=== PATIENT | male | born 1990 | race Caucasian/White ===

== ENCOUNTER 2024-02-26 14:50 | Emergency (ER) | payer SELFPAY ==
--- OUTSIDE RECORDS SUMMARY | 2024-02-26 14:52 | XMS REPORT | Continuity of Care Document ---
Author Name Unknown Address [address] [place] [address] [facility] thconnect Address 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 Attending Clinician [facility], No Primary or Family Admitting Clinic roxanna Unavailable Payers Payer Name Policy Type Policy Number Effective Date Expirati on Date Source Problems Condition Name Condition Details Condition Category Status Onset Date Resolution Date Last Treatment Date Treating Clinician Comments Source Contusion of right forearm, initial encounter Contusion of right forearm, initial encounter Problem HL7.CCDAR2 Active [facility] Mass of right forearm Mass of right forearm Problem HL7.CCDAR2 [facility] Allergies, Adverse Reactions, Alerts Allergy Name Allergy Type Status Severity Reaction(s) Onset Date Inactive Date Treating Clinician Comments Source PENICILL INS Drug Class Active High Rash 07-04 00:00: 00 [facility] Penicill ins Propensi ty to adverse reaction s to drug Active Rash 07-04 00:00: 00 [facility] PENICILL IN DA Active U 03-16 00:00: 00 [facility] Penicill ins drug allergy Active [facility] Social History Social Habit Start Date Stop Date Quantity Comments Source Sex Assigned At 1990 00:00:00 1990 00:00:00 [facility] Smoking Status Start Date Stop Date Source Tobacco smoking consumption unknown [facility] Medications Ordered Medication Name Filled Medication Name Start Date Stop Date Current Medication? Ordering Clinician Indication Dosage Frequency Signature (SIG) Comments Components Source Meloxicam 7.5 MG Oral Tablet Meloxicam 7.5 MG Oral Tablet 05-11 00:00: 00 Yes CHARITO LOERA M.D. TAKE 1 TABLET DAILY WITH FOOD. Days: 30; Qty: 30 X Tablet; Refill: 3 [facility] Methocarbam ol 500 MG Oral Tablet Methocarbam ol 500 MG Oral Tablet 05-11 00:00: 00 Yes CHARITO LOERA M.D. 1 QD TAKE 1 TABLET DAILY PRN pain [facility] No known medications 07-17 11:02: 41 No No known medication s [facility] Procedures Procedure Date / Time Performed Performing Clinicia n Source MR Forearm wo contrast [id number] 2018-06-08 00:00:00 [facility] [U] XRAY WRIST MIN 3 VWS RIGHT [id number] 2018-05-11 00:00:00 [facility] History of Hand surgery [facility] of [facility]ons[facility]lectomy [facility] Encounters Start Date/Time End Date/Time Encounter Type Admission Type Attending Clinicians Care Facility Care Department Encounter ID Source 2023-11-09 14:50:51 2023-11-09 14:50:51 Outpatient [facility] [id number] Anatoliy Sutherland 2023-11-02 09:43:27 2023-11-02 09:43:27 Outpatient [facility] [id number] Anatoliy Sutherland 2022-08-25 22:14:00 2022-08-25 22:24:00 Emergency Dean Abarca [facility] [id number] [facility] 2022-08-25 22:14:00 2022-08-25 22:24:00 Emergency X DEAN ABARCA [facility] ERT [id number] [facility] 2022-05-24 14:26:00 2022-05-24 16:04:00 Emergency EM Dark, Tori [facility] [id number] [facility] 2022-05-24 14:26:00 2022-05-24 16:04:00 Emergency EM Dark, Tori HCACL TOMMY [id number] 74 [facility] 2018-06-08 08:45:00 2018-06-08 08:45:00 Appointmen t; CHARITO BYRD M.D. LI-YUNG HING, ANDREW, M.D. [facility] [place] [id number] [place] [facility] 2018-05-11 08:45:00 2018-05-11 08:45:00 Appointmen t; CHARITO BYRD M.D. LI-YUNG HING, ANDREW, M.D. [facility] [place] [id number] [place] [facility] Results Test Description Test Time Test Comments Results Resul t Comments Source - XR FOOT 3 + V LT 2022-05-24 00:00:00 [facility] CRISTELAName: RAFAEL LYNCH : 1990 Sex: M FAX: Bryan Alarcon NP [phone] [place]: St: REG Name: RAFAEL LYNCH [facility] : 1990 Age/S: 31/M [address] [place] [address] Unit #: [id number] Loc: [place] [address] Phys: Bryan Bejarano NP Acct: [id number] Dis Date: Status: REG ER PHONE #: [phone] Exam Date: 05/24/2022 1459 FAX #: [phone] Reason: LEFT FOOT PAIN EXAMS: CPT CODE: [id number] XR FOOT 3 + V LT [id number] PROCEDURE INFORMATION: Exam: XR Left Foot Exam date and time: 05/24/2022 2:51 PM Age: 31 years old Clinical indication: Pain; Foot; Left; Additional info: Left foot pain TECHNIQUE: Imaging protocol: Radiologic exam of the Left foot. Views: 3 or more views. AP Oblique Lateral COMPARISON: No relevant prior studies available. FINDINGS: Bones/joints: There is normal alignment without fractures or dislocations. The joints appear unremarkable. Soft tissues: There are no radiopaque foreign bodies. There is no soft tissue gas or osseous erosive changes noted. Notes: If there is further concern, recommend follow-up radiographs or MRI for complete assessment. IMPRESSION: No fractures or dislocation at 1524 Reported and signed by: Kody Mohr M.D. CC: Bryan Bejarano NP Technologist: RT Iris(Rudi) Trnscrd Date/Time/By: 05/24/2022 (1524) : By: [email or web address] Orig Print D/T: S: 05/24/2022 (2188) PAGE 1 Signed Report Notes Date/Time Note Provider Source 2022-05-24 14:38:00 [id number]:38:00 [facility] ([facility])EMERGENCY PROVIDER REPORTREPORT#:[id number] REPORT STATUS: SignedDATE:05/24/22 TIME: 1438 PATIENT: RAFAEL LYNCH UNIT #: [id number]#: [id number] ROOM/BED:AGE: 31 SEX: M PCP PHYS: No Primary or Family PhysicianSERVICE AUTHOR: Bryan Bejarano COREMAKER EXPERIMENTAL * ALL edits or amendments must be made on the electronic/computer document * Bryan Bejarano 05/24/22 1438:HPI-Extremity Prob Lower Free Text HPI NotesFree Text HPI NotesPatient 31-year-old male with no significant medical history presents with complaint of left foot pain status post injury on a water slide yesterday. Reports that left foot became entrapped under body while entering water slide [facility].Allergic to penicillin, no home meds, PSH includes repairs of both hands and jaw. Current everyday smoker, drinks occasionally, denies recreational drug use.Patient has no PCP GeneralConfirmed Patient YesInitial Greet Date/Time 05/24/22 1431 PresentationChief Complaint Foot problem L Risk-Extremity Prob Lower Risk StratificationWell's Criteria for DVT Well's Criteria for DVT Response Value Active Cancer? No 0 Immob Lower Extremity? No 0 Bed >3 Days/Surg Last 4 Weeks? No 0 Local Tend Deep Venous Sys? No 0 Entire Leg Swollen? No 0 Calf Swelling >3cm? No 0 Pit Edema in Symptomatic Leg? No 0 Collat Superficial Veins? No 0 Previous Documented DVT? No 0 Total 0 Well's DVT Score Unlikely, per Pavel DVT Review of Systems ROS StatementsAll systems rev neg except as marked. Past Medical History - AdultStated Complaint LFT FOOT INJURYAllergiesUncoded Allergies:PENICILLIN (05/16/09) Review of Nursing Notes Rev avail, and agreeSmoking status for patients 13 years old or older: Current every day smoker Physical Exam Vital SignsVital SignsFirst Documented: Result Date Time Pulse Ox 99 07/ 1430 B/P 155/97 07/02 1430 B/P Mean 116 07/02 1430 O2 Delivery Room air 07/ 1430 Temp 36.2 07/02 1430 Pulse 90 07/02 1430 Resp 16 / 1430 Last Documented: Result Date Time Pulse Ox 99 07/ 1430 B/P 155/97 07/02 1430 B/P Mean 116 07/02 1430 O2 Delivery Room air 07/ 1430 Temp 36.2 07/02 1430 Pulse 90 07/ 1430 Resp 16 05/24 1430 Review of Vital Signs Reviewed Focused PEGeneral/Const General/Const Awake, Alert, No acute distress, Not toxic appearingResp/Chest Respiratory/Chest Breath sounds NL, Breath sounds = bilat, No respiratory distressCardiovascular Cardiovascular Regular rhythm, Heart sounds NL, No murmursMS Lower Extrem Lower Ext/Pelvis/MS Full range of motion, No swelling, Non-tender, No erythemaMS Ankle/Foot Text/Dict NoteRight LE is unremarkableThere is mild swelling and TTP without erythema to the left dorsal lateral midfoot. Patient is able to ambulate with only minimal antalgic gait. Declinespain medications at this time.Skin Skin Color NL, No rash, Warm, Dry, IntactNeurologic Neurologic Oriented X3, Speech NL, Gait NL Interpretation Diagnostics Lab Results InterpretationResultsRecent Impressions:RADIOLOGY - XR FOOT 3 + V LT 05/24 1459 Report Impression - Status: SIGNED Entered: 05/24/2022 1524 IMPRESSION: No fractures or dislocation Impression By: Judi Mohr M.D. Point of Care TestingPulse Oximetry Pulse Ox % 99 On: Room air Interpretation Interpreted by me, Pulse oximetry normal Time 1430 RadiographyX-Ray Interpretation Text/Dict NoteRADIOLOGY - XR FOOT 3 + V LT 05/24 1459 Report Impression - Status: SIGNED Entered: 05/24/2022 1524 IMPRESSION: No fractures or dislocation Impression By: Judi Mohr M.D. Re-Evaluation MDM Free Text MDM NotesFree Text MDM NotesElastic bandage was placed to the left foot to provide compression. Patient tolerated procedure well. Re-Evaluation/ProgressRe-Evaluation/Progress Text/Dict NotePatient is resting comfortably waiting room with no acute distress reported or noted. Is frequently seen walking outside to smoke. Shared results with patient, including no fracture or dislocation. Patient continues to decline pain medications at this time. Plan to DC home with follow-up for orthopedics as needed. Instructed on home care including rest ice compress elevate. Patient verbalized understanding agreeable plan Time of Re-Eval 1543 Re-Eval Status Improved ED CourseMedication(s) OrderedMedication(s) Ordered:Central Nervous System Agents Sig/Jessenia Start time Last Medication Dose Route Stop Time Status Admin Ibuprofen 800 MG X1ED STA 05/24 1515 DC PO 05/24 1516 Patient Discharge Departure Vital Signs/ConditionVital SignsFirst Documented: Result Date Time Pulse Ox 99 07/ 1430 B/P 155/97 07/02 1430 B/P Mean 116 07/02 1430 O2 Delivery Room air 07/ 1430 Temp 36.2 07/02 1430 Pulse 90 07/02 1430 Resp 16 07/02 1430 Last Documented: Result Date Time Pulse Ox 99 07/02 1430 B/P 155/97 07/02 1430 B/P Mean 116 07/02 1430 O2 Delivery Room air 07/02 1430 Temp 36.2 07/02 1430 Pulse 90 07/02 1430 Resp 16 07/02 1430 All vital signs available at the time of this entry have been reviewed. Condition Stable Clinical ImpressionClinical ImpressionPrimary Impression: Sprain of foot, left Disposition DecisionDischarge )( Discharged to Home Yes )( Time 1552 )( Date 05/24/22 Discharge/Care PlanCounseled Regarding Diagnosis, Imaging studies, Need for follow-up, When to return to ED(Auto) PrescriptionsCurrent Visit ScriptsIBUPROFEN (MOTRIN) 800 MG PO TID PRN PRN PAIN IBUPROFEN (MOTRIN) 800 MG PO TID PRN PRN PAIN #30 TABS Patient Instructions ED Foot Sprain, ED RICEAdditional InstructionsYou were seen in the ER for your left foot pain. While you were here, we completed x-ray studies and treated your pain. Your results showed no evidence of a fracture. Take the prescribed and/or OTC medications as directed, as discussed, paying especially close attention to dosing based on age and weight. Follow-up with your PCP, and/or an appropriate specialist as discussed for continuity of care. Return to the ER for any alarming symptoms. Discharge NoteI have spoken with the patient and/or caregivers. I have explained the patient'scondition, diagnoses and treatment plan based on the information available to meat this time. I have answered the patient's and/or caregiver's questions and addressed any concerns. The patient and/or caregivers have as good an understanding of the patient's diagnosis, condition and treatment plan as can beexpected at this point. The vital signs have been stable. The patient's condition is stable and appropriate for discharge from the emergency department. The patient will pursue further outpatient evaluation with the primary care physician or other designated or consulting physician as outlined in the discharge instructions. The patient and/or caregivers are agreeable to this planof care and follow-up instructions have been explained in detail. The patient and/or caregivers have received these instructions in written format and have expressed an understanding of the discharge instructions. The patient and/or caregivers are aware that any significant change in condition or worsening of symptoms should prompt an immediate return to this or the closest emergency department or a call to 911. Extremity Inj Discharge NoteThe patient is discharged home with supportive care, a plan for pain control, and follow-up instructions that detail what to expect over the next 48 hours andwhat symptoms should prompt immediate return to the ED, including the symptoms of compartment syndrome. Follow-up instructions have been explained in detail tothe patient, and the instructions have been provided in written format. The patient is comfortable with the plan of care and has expressed an understanding of the discharge instructions. The patient is aware that any significant change in condition or worsening of symptoms should prompt an immediate call to the primary or designated physician. If that is not successful the patient should call or return to this or the closest emergency department or call 911. Quality MeasuresBP F/U for HTN Referred for BP f/u < 4wk, F/u with PCP/other doc Melanie Hebert 06/07/22 0047:Patient Discharge Departure Discharge/Care PlanReferralsProvider Referral: Anson Smalls Jr, MD Address: [address] [place] [address]. [id number] [address] Supervising Physician Note MidLv Saw Pt AloneI have reviewed the PA/COREMAKER EXPERIMENTAL's note and plan of care. I was available for consultation as needed at all times during the patient's visit in the emergency department. I agree with the clinical impression, plan and disposition. at 1735 at 0047RPT #:[id number] OF REPORTEDPeacehealth [facility] department [id number] ilable for patient [id number] HCACL
--- NOTE | 2024-02-26 15:17 | ER ---
Nurse's Notes [facility] Name: Tawnya Lynch Age: 33 yrs Sex: Male : 1990 Arrival Date: 02/26/2024 Time: 14:50 Bed IW3 Private MD: Diagnosis: Abdominal pain, unspecified;Diarrhea, unspecified;Nausea Presentation: 02/25 15:05 Chief complaint: Patient states: Would like a work note because he called into work for ll1 abdominal pain and fever (2 days of abdominal pain). Coronavirus screen: Client denies travel out of the [place] in the last 14 days. At this time, the client does not indicate any symptoms associated with coronavirus-19. Ebola Screen: Patient denies travel to an Ebola-affected area in the 21 days before illness onset. Initial Sepsis Screen: Does the patient meet any 2 criteria? No. Patient's initial sepsis screen is negative. Does the patient have a suspected source of infection? No. Patient's initial sepsis screen is negative. Risk Assessment: Do you want to hurt yourself or someone else? Patient reports no desire to harm self or others. Onset of symptoms was February 24, 2024. 15:05 Method Of Arrival: Ambulatory ll1 15:05 Acuity: BRIA 5 ll1 Triage Assessment: 15:05 General: Appears in no apparent distress. Behavior is calm, cooperative, appropriate ll1 for age, Reports needing a work release. Pain: Denies pain. GI: Reports had abdominal pain and fever last night. Feels better now. Needs a work excuse. Historical: - Allergies: 15:06 PENICILLINS; ll1 - PMHx: 15:06 None; ll1 - PSHx: 15:06 jaw SX; ll1 - Immunization history:: Adult Immunizations up to date. - Infectious Disease History:: Denies. - Social history:: Smoking status: Patient reports the use of cigarette tobacco products, smokes one-half pack cigarettes per day. Screenin:20 [facility] ED Fall Risk Assessment (Adult) History of falling in the last 3 months, ll1 including since admission No falls in past 3 months (0 pts) Confusion or Disorientation No (0 pts) Intoxicated or Sedated No (0 pts) Impaired Gait No (0 pts) Mobility Assist Device Used No (0 pt) Altered Elimination No (0 pt) Score/Fall Risk Level 0 - 2 = Low Risk Oriented to surroundings, Hourly rounding (assess needs \T\ fall precautionary measures) done. Abuse screen: Denies threats or abuse. Nutritional screening: No deficits noted. Tuberculosis screening: No symptoms or risk factors identified. Assessment: 15:20 Reassessment: Patient appears in no apparent distress at this time. No changes from ll1 previously documented assessment. Patient and/or family updated on plan of care and expected duration. Pain level reassessed. 15:20 GI: Bowel sounds present X 4 quads. Abd is soft and non tender X 4 quads. ll1 Vital Signs: 15:05 BP 146 / 109; Pulse 88; Resp 16; Temp 98; Pulse Ox 100% ; Pain 0/10; ll1 15:05 Pain Scale: Adult ll1 ED Course: 14:53 Patient arrived in ED. rg4 14:54 Sebastian Kimbrough PA is PHCP. cp 14:54 Skyler Muniz MD is Attending Physician. cp 15:00 Arm band placed on. ll1 15:06 Triage completed. ll1 15:20 Patient has correct armband on for positive identification. Provided Education on: ll1 Return to ED for worsening symptoms. Verbalized understanding. . 15:20 No provider procedures requiring assistance completed. Patient did not have IV access ll1 during this emergency room visit. Administered Medications: No medications were administered Medication: 16:12 VIS not applicable for this client. ll1 Outcome: 15:17 Discharge ordered by . cp 15:20 Patient left the ED. ll1 15:20 Discharged to home ambulatory, ll1 15:20 Condition: stable 15:20 Discharge instructions given to patient, Instructed on discharge instructions, follow up and referral plans. Demonstrated understanding of instructions, follow-up care, Signatures: Sebastian Kimbrough PA PA cp Garcia, Rubi rg4 Urbano Gutierrez RN RN ll1 Corrections: (The following items were deleted from the chart) 15:07 15:06 PSHx: None; ll1 ll1
--- NOTE | 2024-02-26 15:17 | EDPHYS ---
Physician Documentation [facility] Name: Tawnya Lynch Age: 33 yrs Sex: Male : 1990 Arrival Date: 02/26/2024 Time: 14:50 Bed IW3 Private MD: ED Physician Skyler Muniz HPI: 02/25 15:07 This 33 yrs old Male presents to ER via Ambulatory with complaints of Abdominal Pain, cp Fever. 15:07 The patient presents with abdominal pain nausea, vomiting and diarrhea. Onset: The cp symptoms/episode began/occurred 3 day(s) ago. The symptoms do not radiate. Associated signs and symptoms: Pertinent positives: fever, Pertinent negatives: blood in stools, constipation, dysuria, vomiting blood. The symptoms are described as waxing/waning. 15:07 Severity of pain: in the emergency department the pain has improved mildly. cp Historical: - Allergies: 15:06 PENICILLINS; ll1 - PMHx: 15:06 None; ll1 - PSHx: 15:06 jaw SX; ll1 - Immunization history:: Adult Immunizations up to date. - Infectious Disease History:: Denies. - Social history:: Smoking status: Patient reports the use of cigarette tobacco products, smokes one-half pack cigarettes per day. ROS: 15:08 Constitutional: Negative for fever, poor PO intake, cp 15:08 Respiratory: Negative for cough, wheezing, 15:08 Abdomen/GI: Positive for abdominal pain, nausea and vomiting, diarrhea, Negative for constipation, hematemesis, black/tarry stool, 15:08 Back: Negative for pain at rest, pain with movement, 15:08 : Negative for urinary symptoms, testicular pain 15:08 Neuro: Negative for altered mental status, dizziness, headache, weakness, 15:08 All other systems are negative, Exam: 15:10 Head/Face: Normocephalic, atraumatic. cp 15:10 Constitutional: The patient appears in no acute distress, alert, awake, comfortable, non-toxic, well developed, well nourished, 15:10 Eyes: Periorbital structures: appear normal, Conjunctiva: normal, no exudate, no injection, Sclera: no appreciated abnormality, Lids and lashes: appear normal, bilaterally, 15:10 ENT: External ear(s): are unremarkable, Nose: is normal, Mouth: Lips: moist, Oral cp mucosa: pink and intact, moist, Posterior pharynx: Airway: no evidence of obstruction, patent, 15:10 Chest/axilla: Inspection: normal, 15:10 Cardiovascular: Rate: normal, Rhythm: regular, 15:10 Respiratory: the patient does not display signs of respiratory distress, Respirations: normal, no use of accessory muscles, no retractions, labored breathing, is not present, Breath sounds: are clear throughout, no decreased breath sounds, no stridor, no wheezing, 15:10 Abdomen/GI: Inspection: abdomen appears normal, Bowel sounds: active, all quadrants, Palpation: soft, in all quadrants, nontender, in all quadrants, 15:10 Back: pain, is absent, ROM is normal, 15:10 Neuro: Orientation: to person, place \T\ time. Mentation: is normal, cp Vital Signs: 15:05 BP 146 / 109; Pulse 88; Resp 16; Temp 98; Pulse Ox 100% ; Pain 0/10; ll1 15:05 Pain Scale: Adult ll1 MDM: 15:03 Patient medically screened. cp 15:15 Data reviewed: vital signs, nurses notes. Refusal of service: The patient/guardian cp displays adequate decision making capability and despite a detailed discussion of alternatives, benefits, risks, and consequences refuses: CT Scan, all lab tests. ED course: request note for work. Administered Medications: No medications were administered Disposition Summary: 02/26/24 15:17 Discharge Ordered Notes: Location: Home cp Problem: new cp Symptoms: are unchanged cp Condition: Stable cp Diagnosis - Abdominal pain, unspecified cp - Diarrhea, unspecified cp - Nausea cp Followup: cp - With: Private Physician - When: 1 - 2 days - Reason: Worsening of condition Discharge Instructions: - Abdominal Pain, Adult cp - Food Choices to Help Relieve Diarrhea, Adult cp - Diarrhea, Adult cp - Nausea, Adult cp - Discharge Summary Sheet ll1 Forms: - Medication Reconciliation Form cp - Thank You Letter cp - Antibiotic Education cp - Prescription Opioid Use cp - Patient Portal Instructions cp - Leadership Thank You Letter cp - Work release form ll1 Signatures: Sebastian Kimbrough PA PA cp Urbano Gutierrez RN RN ll1 Corrections: (The following items were deleted from the chart) 15:07 15:06 PSHx: None; ll1 ll1
[2024-02-26 16:08] VITALS: BP 146/109; TEMP 98; O2SAT 100
== END 2024-02-26 15:20 | disposition home or self-care (01) ==
LOC: ER 14:50
DX: R10.9 Unspecified abdominal pain (principal); R19.7 Diarrhea, unspecified; R11.0 Nausea; Z88.0 Allergy status to penicillin
CPT/HCPCS: 99282

== ENCOUNTER 2024-06-27 16:49 | Emergency (ER) | payer SELFPAY ==
--- OUTSIDE RECORDS SUMMARY | 2024-06-27 16:52 | XMS REPORT | Continuity of Care Document ---
Author Name Unknown Address [address] [phone] [facility] thconnect Address [address] [phone] Care Team Providers Care Tool Engine Lathe Set Up Operator Name Role Phone Pcp, Patient Does Not Have A Primary Care Physic roxanna DEAN ABARCA Attending Clinician Unavailable Dean Abarca MD Attending Clinician Tori Palmer Attending Clinician Unavailable CHARITO BYRD M.D. Attending Clinician [facility] Physician, No Primary or Family Admitting Clinic [...] Class Active High Rash 07-04 00:00: 00 [facility] Penicill ins Propensi ty to adverse reaction s to drug Active Rash 07-04 00:00: 00 [facility] PENICILL IN DA Active U 03-16 00:00: 00 [facility] Penicill ins drug allergy Active [facility] Social History Social Habit Start Date Stop Date Quantity Comments Source Sex Assigned At 1990 00:00:00 1990 00:00:00 [facility] Smoking Status Start Date Stop Date Source Tobacco smoking consumption unknown [facility] Medications Ordered Medication Name Filled Medication Name [...] 41 No No known medication s [facility] Procedures Procedure Date / Time Performed Performing Clinicia n Source MR Forearm wo contrast [id number] 2018-06-08 00:00:00 [facility] [[facility]] XRAY WRIST MIN 3 VWS RIGHT [id number] 2018-05-11 00:00:00 [facility] History of Hand surgery [facility] of Tonsillectomy [facility] Encounters Start Date/Time End Date/Time Encounter Type Admission Type Attending Clinicians Care Facility Care Department Encounter ID Source 2023-11-09 14:50:51 2023-11-09 14:50:51 Outpatient [facility] [id number] Anatoliy Sutherland 2023-11-02 09:43:27 2023-11-02 09:43:27 Outpatient [facility] [id number] Anatoliy Sutherland 2022-08-25 22:14:00 2022-08-25 22:24:00 Emergency [facility] [id number] [facility] 2022-08-25 22:14:00 2022-08-25 22:24:00 Emergency Dean Abarca [facility] [id number] [facility] 2022-05-24 14:26:00 2022-05-24 16:04:00 Emergency EM Dark, Tori [facility] [id number] [facility] 2022-05-24 14:26:00 2022-05-24 16:04:00 Emergency EM Dark, Tori [facility] [id number] [facility] 2018-06-08 08:45:00 2018-06-08 08:45:00 Appointmen t; CHARITO YBRD M.D. LI-YUNG HING, ANDREW, M.D. [facility] [place] [id number] [place] [facility] 2018-05-11 08:45:00 2018-05-11 08:45:00 Appointmen t; CHARITO BYRD M.D. LI-YUNG HING, ANDREW, M.D. [facility] [place] [id number] [place] [facility] Results Test Description Test Time Test Comments Results Resul t Comments Source - XR FOOT 3 + V LT 2022-05-24 00:00:00 [facility] CRISTELAName: RAFAEL LYNCH : 1990 Sex: M FAX: Bryan Alarcon NP [phone] [place]: St: REG Name: RAFAEL LYNCH [facility] : 1990 Age/S: 31/M [address] [place] [address] Unit #: [id number] Loc: [place] [address] Phys: Bryan Bejarano NP Acct: [id number] Dis Date: Status: REG ER PHONE #: [phone] Exam Date: 05/24/2022 9782 FAX #: [phone] Reason: LEFT FOOT PAIN EXAMS: CPT CODE: [id number] XR FOOT 3 + V LT 08167 PROCEDURE INFORMATION: Exam: XR Left Foot Exam [...] By: [email or web address] Orig Print D/T: S: 05/24/2022 (6302) PAGE 1 Signed Report Notes Date/Time Note Provider Source 2022-05-24 14:38:00 [facility] ([facility]) EMERGENCY PROVIDER REPORT REPORT#:[id number] REPORT STATUS: Signed DATE:05/24/22 TIME: 143 PATIENT: RAFAEL LYNCH UNIT #: [id number] ROOM/BED: AGE: 31 SEX: M PCP PHYS: No Primary or Family Physician SERVICE AUTHOR: Bryan Bejarano TAXONOMIST * ALL edits or amendments must be made on the electronic/computer document * Bryan Bejarano 05/24/22 1438: HPI-Extremity Prob Lower Free Text HPI Notes Free Text HPI Notes Patient 31-year-old male with no significant medical history presents with complaint of left foot pain status post injury on a water slide yesterday. Reports that left foot became entrapped under body while entering water slide at water park. Allergic to penicillin, no home meds, PSH includes repairs of both hands and jaw. Current everyday smoker, drinks occasionally, denies recreational drug use. Patient has no PCP General Confirmed Patient Yes Initial Greet Date/Time 05/24/22 1431 Presentation Chief Complaint Foot problem L Risk-Extremity Prob Lower Risk Stratification Well's Criteria for DVT Well's Criteria for DVT [...] Total 0 Well's DVT Score Unlikely, per Wells DVT Review of Systems ROS Statements All systems rev neg except as marked. Past Medical History - Adult Stated Complaint LFT FOOT INJURY Allergies Uncoded Allergies: PENICILLIN (05/16/09) Review of Nursing Notes Rev avail, and agree Smoking status for patients 13 years old or older: Current every day smoker Physical Exam Vital Signs Vital Signs First Documented: Result Date Time Pulse Ox 99 05/24 1430 B/P 155/97 05/24 1430 B/P Mean 116 05/24 1430 O2 Delivery Room air 05/24 1430 Temp 36.2 05/24 1430 Pulse 90 05/24 1430 Resp 16 05/24 1430 Last Documented: Result Date Time Pulse Ox 99 05/24 1430 B/P 155/97 05/24 1430 B/P Mean 116 05/24 1430 O2 Delivery Room air 05/24 1430 Temp 36.2 05/24 1430 Pulse 90 05/24 1430 Resp 16 05/24 1430 Review of Vital Signs Reviewed Focused PE General/Const General/Const Awake, Alert, No acute distress, Not toxic appearing Resp/Chest Respiratory/Chest Breath sounds NL, Breath sounds = bilat, No respiratory distress Cardiovascular Cardiovascular Regular rhythm, Heart sounds NL, No murmurs MS Lower Extrem Lower Ext/Pelvis/MS Full range of motion, No swelling, Non-tender, No erythema MS Ankle/Foot Text/Dict Note Right LE is unremarkable There is mild swelling and TTP without erythema to the left dorsal lateral midfoot. Patient is able to ambulate with only minimal antalgic gait. Declines pain medications at this time. Skin Skin Color NL, No rash, Warm, Dry, Intact Neurologic Neurologic Oriented X3, Speech NL, Gait NL Interpretation Diagnostics Lab Results Interpretation Results Recent Impressions: RADIOLOGY - XR FOOT 3 + V LT 05/24 1459 Report Impression - Status: SIGNED Entered: 05/24/2022 1524 IMPRESSION: No fractures or dislocation Impression By: Judi Mohr M.D. Point of Care Testing Pulse Oximetry Pulse Ox % 99 On: Room air Interpretation Interpreted by me, Pulse oximetry normal Time 1430 Radiography X-Ray Interpretation Text/Dict Note RADIOLOGY - XR FOOT 3 + V LT 05/24 1459 Report Impression - Status: SIGNED Entered: 05/24/2022 1524 IMPRESSION: No fractures or dislocation Impression By: Judi Mohr M.D. Re-Evaluation MDM Free Text MDM Notes Free Text MDM Notes Elastic bandage was placed to the left foot to provide compression. Patient tolerated procedure well. Re-Evaluation/Progress Re-Evaluation/Progress Text/Dict Note Patient is resting comfortably waiting room with no [...] of Re-Eval 1543 Re-Eval Status Improved ED Course Medication(s) Ordered Medication(s) Ordered: Central Nervous System Agents Sig/Jessenia Start time Last Medication Dose Route Stop Time Status Admin Ibuprofen 800 MG X1ED STA 05/24 1515 DC PO 05/24 1516 Patient Discharge Departure Vital Signs/Condition Vital Signs First Documented: Result Date Time Pulse Ox 99 07/ 1430 B/P 155/97 07/02 1430 B/P Mean 116 07/02 1430 O2 Delivery Room air 07/ 1430 Temp 36.2 07/02 1430 Pulse 90 07/02 1430 Resp 16 07/ 1430 Last Documented: Result Date Time Pulse Ox 99 07/ 1430 B/P 155/97 07/02 1430 B/P Mean 116 07/02 1430 O2 Delivery Room air 07/ 1430 Temp 36.2 07/02 1430 Pulse 90 07/ 1430 Resp 16 / 1430 All vital signs available at the time of this entry have been reviewed. Condition Stable Clinical Impression Clinical Impression Primary Impression: Sprain of foot, left Disposition Decision Discharge )( Discharged to Home Yes )( Time 1552 )( Date 05/24/22 Discharge/Care Plan Counseled Regarding Diagnosis, Imaging studies, Need for follow-up, When to return to ED (Auto) Prescriptions Current Visit Scripts IBUPROFEN (MOTRIN) 800 MG PO TID PRN PRN PAIN IBUPROFEN (MOTRIN) 800 MG PO TID PRN PRN PAIN #30 TABS Patient Instructions ED Foot Sprain, ED RICE Additional Instructions You were seen in the ER for your [...] the ER for any alarming symptoms. Discharge Note I have spoken with the patient and/or caregivers. I have explained the patient's condition, diagnoses and treatment plan based on the information available to me at this time. I have answered the patient's and/or caregiver's questions and addressed any concerns. The patient and/or caregivers have as good an understanding of the patient's diagnosis, condition and treatment plan as can be expected at this point. The vital signs have been stable. The patient's condition is stable and appropriate for discharge from the emergency department. The patient will pursue further outpatient evaluation with the primary care physician or other designated or consulting physician as outlined in the discharge instructions. The patient and/or caregivers are agreeable to this plan of care and follow-up instructions have been explained [...] a call to 911. Extremity Inj Discharge Note The patient is discharged home with supportive care, a plan for pain control, and follow-up instructions that detail what to expect over the next 48 hours and what symptoms should prompt immediate return to the ED, including the symptoms of compartment syndrome. Follow-up instructions have been explained in detail to the patient, and the instructions have been provided [...] closest emergency department or call 911. Quality Measures BP F/U for HTN Referred for BP f/u < 4wk, F/u with PCP/other doc Melanie Hebert 06/07/22 0047: Patient Discharge Departure Discharge/Care Plan Referrals Provider Referral: Anson Smalls Jr, MD Address: [address] [place] [address]. [address] [address] Supervising Physician Note MidLv Saw Pt Alone I have reviewed the PA/TAXONOMIST's note and plan of care. I was available for consultation as needed at all times during the patient's visit in the emergency department. I agree with the clinical impression, plan and disposition. at [phone] at 0047 RPT #:[id number] END OF REPORT [facility]
--- NOTE | 2024-06-27 17:01 | ER ---
Nurse's Notes [facility] Name: Tawnya Lynch Age: 33 yrs Sex: Male : 1990 Arrival Date: 06/27/2024 Time: 16:49 Bed IW1 Private MD: Diagnosis: Jaw Pain;Dental pain Presentation: 06/27 16:59 Chief complaint: Left upper molar pain x 1 month, worse over last few days. Coronavirus hb screen: At this time, the client does not indicate any symptoms associated with coronavirus-19. Ebola Screen: No symptoms or risks identified at this time. Initial Sepsis Screen: Does the patient meet any 2 criteria? No. Patient's initial sepsis screen is negative. Does the patient have a suspected source of infection? No. Patient's initial sepsis screen is negative. Risk Assessment: Do you want to hurt yourself or someone else? Patient reports no desire to harm self or others. Onset of symptoms was May 2024. 16:59 Method Of Arrival: Ambulatory hb 16:59 Acuity: BRIA 4 hb Historical: - Allergies: 17:00 PENICILLINS; hb - Home Meds: 17:00 None [Active]; hb - PMHx: 17:00 None; hb - PSHx: 17:00 Jaw Sx; hb - Immunization history:: Adult Immunizations up to date. - Infectious Disease History:: Denies. - Social history:: Smoking status: Patient reports the use of cigarette tobacco products, smokes one pack cigarettes per day. Screenin:04 [facility] ED Fall Risk Assessment (Adult) History of falling in the last 3 months, hb including since admission No falls in past 3 months (0 pts) Confusion or Disorientation No (0 pts) Intoxicated or Sedated No (0 pts) Impaired Gait No (0 pts) Mobility Assist Device Used No (0 pt) Altered Elimination No (0 pt) Score/Fall Risk Level 0 - 2 = Low Risk Oriented to surroundings, Maintained a safe environment, Educated pt \T\ family on fall prevention, incl call for assistance when getting out of bed. Abuse screen: Denies threats or abuse. Denies injuries from another. Nutritional screening: No deficits noted. Tuberculosis screening: No symptoms or risk factors identified. Assessment: 17:04 General: Appears in no apparent distress. Behavior is calm, cooperative. Pain: Pain hb currently is 2 out of 10 on a pain scale. at worst was 9 out of 10 on a pain scale. Neuro: Level of Consciousness is awake, alert, obeys commands, Oriented to person, place, time, situation. Cardiovascular: Patient's skin is warm and dry. Respiratory: Respiratory effort is even, unlabored, Respiratory pattern is regular, symmetrical. GI: No signs and/or symptoms were reported involving the gastrointestinal system. : No signs and/or symptoms were reported regarding the genitourinary system. EENT: Reports left molar pain. Derm: Skin is pink, warm \T\ dry. Musculoskeletal: No signs and/or symptoms reported regarding the musculoskeletal system. Vital Signs: 16:59 BP 128 / 86; Pulse 83; Resp 16; Temp 97.3; Pulse Ox 100% on R/A; Weight 90.72 kg; hb Height 6 ft. 1 in. ; Pain 2/10; 16:59 Body Mass Index 26.39 (90.72 kg, 185.42 cm) hb 16:59 Pain Scale: Adult hb ED Course: 16:51 Patient arrived in ED. ra3 16:52 Jaci Peguero FNP-C is [facility]. kb 16:52 Denice Raza MD is Attending Physician. kb 17:00 Triage completed. hb 17:01 Arm band placed on. hb 17:04 Patient has correct armband on for positive identification. Provided Education on: hb follow up, medications . 17:04 No provider procedures requiring assistance completed. Patient did not have IV access hb during this emergency room visit. 17:06 Moon Patiño, RN is Primary Nurse. hb Administered Medications: No medications were administered Medication: 17:04 VIS not applicable for this client. hb Outcome: 17:00 Discharge ordered by . kb 17:04 Discharged to home ambulatory, hb 17:04 Condition: stable 17:04 Discharge instructions given to patient, Instructed on discharge instructions, follow up and referral plans. medication usage, Demonstrated understanding of instructions, follow-up care, medications, Prescriptions given X 1, 17:06 Patient left the ED. hb Signatures: Jaci Peguero FNP-C FNP-Moon Juares RN RN hb Alva, Ruby ra3 Corrections: (The following items were deleted from the chart) 17:01 17:00 PMHx: Unable to Obtain; hb hb
--- NOTE | 2024-06-27 17:01 | EDPHYS ---
Physician Documentation [facility] Name: Tawnya Lynch Age: 33 yrs Sex: Male : 1990 Arrival Date: 06/27/2024 Time: 16:49 Bed IW1 Private MD: ED Physician Denice Raza HPI: 06/27 16:54 This 33 yrs old Male presents to ER via Unassigned with complaints of Toothache, Jaw kb Pain. 16:54 Pt is a 33 year old male who presents for left lower jaw pain that has been kb intermittent for one month. States he had a fracture 2 years ago and had hardware placed to fix it. Denies any new trauma. States he also has a bad tooth in the upper left jaw that he knows he needs pulled. Reports one day of fever a week ago, but none since then. . Historical: - Allergies: 17:00 PENICILLINS; hb - Home Meds: 17:00 None [Active]; hb - PMHx: 17:00 None; hb - PSHx: 17:00 Jaw Sx; hb - Immunization history:: Adult Immunizations up to date. - Infectious Disease History:: Denies. - Social history:: Smoking status: Patient reports the use of cigarette tobacco products, smokes one pack cigarettes per day. ROS: 16:54 Constitutional: As per HPI kb Exam: 16:54 Constitutional: This is a well developed, well nourished patient who is awake, alert, kb and in no acute distress. Head/Face: Normocephalic, atraumatic. ENT: Moist Mucous membranes Cardiovascular: Regular rate Respiratory: Respirations even and unlabored. No increased work of breathing. Talking in full sentences Abdomen/GI: Soft, non-tender. No distention Skin: Warm, dry with normal turgor. Normal color. MS/ Extremity: Pulses equal, no cyanosis. Neurovascular intact. Full, normal range of motion. Neuro: Awake and alert, GCS 15, oriented to person, place, time, and situation. Moves all extremities. Normal gait. Vital Signs: 16:59 BP 128 / 86; Pulse 83; Resp 16; Temp 97.3; Pulse Ox 100% on R/A; Weight 90.72 kg; hb Height 6 ft. 1 in. ; Pain 2/10; 16:59 Body Mass Index 26.39 (90.72 kg, 185.42 cm) hb 16:59 Pain Scale: Adult hb MDM: 16:52 Patient medically screened. kb 16:56 Differential diagnosis: dental caries, gingivitis, dental abscess, pericoronitis. Data kb reviewed: vital signs, nurses notes. Counseling: I had a detailed discussion with the patient and/or guardian regarding the historical points, exam findings, and any diagnostic results supporting the discharge/admit diagnosis, the need for outpatient follow up, a dentist, to return to the emergency department if symptoms worsen or persist or if there are any questions or concerns that arise at home. Administered Medications: No medications were administered Disposition Summary: 06/27/24 17:00 Discharge Ordered Notes: Location: Home kb Condition: Stable kb Diagnosis - Jaw Pain kb - Dental pain kb Followup: kb - With: Emergency Department - When: As needed - Reason: Worsening of condition Followup: kb - With: Private Physician - When: 2 - 3 days - Reason: Recheck today's complaints, Continuance of care, Re-evaluation by your physician Discharge Instructions: - Discharge Summary Sheet kb - Dental Pain, [id number] kb - Dental Abscess, [id number] kb Forms: - Work release form kb - Medication Reconciliation Form kb - Antibiotic Education kb - Prescription Opioid Use kb - Patient Portal Instructions kb - Leadership Thank You Letter kb Prescriptions: - Clindamycin HCl 300 mg Oral Capsule - take 1 capsule ORAL route every 6 hours for 10 days; 40 capsule; Refills: 0, kb Product Selection Permitted Signatures: Jaci Peguero, YUVAL RENE-Moon Juares, RN RN hb Corrections: (The following items were deleted from the chart) 17:01 17:00 PMHx: Unable to Obtain; hb hb
[2024-06-27 20:52] VITALS: BP 128/86; TEMP 97.3; O2SAT 100
== END 2024-06-27 17:06 | disposition home or self-care (01) ==
LOC: ER 16:49
DX: R68.84 Jaw pain (principal); K08.89 Other specified disorders of teeth and supporting structures
CPT/HCPCS: 99283

== ENCOUNTER 2025-03-30 13:22 | Emergency (ER) | payer SELFPAY ==
--- OUTSIDE RECORDS SUMMARY | 2025-03-30 13:25 | XMS REPORT | Continuity of Care Document ---
Author Name Unknown Address [address] [facility] [address] [place] [address] [facility] Address [address] [facility] [address] [place] [address] Care Team Providers Care Plant Anatomy Teacher Name Role Phone Pcp, Patient Does Not Have A Primary Care Physic roxanna Hiro Velazquez Attending Clinician Unavailab Deonna Cowan Attending Clinician Unavailab DEAN Cooper Attending Clinician Unavailable Dean Ontiveros MD Attending Clinician Tori Palmer Attending Clinician Unavailable CHARITO BYRD M.D. Attending Clinician Ariel Noguera Admitting Clinician Unavailable Physician, No Primary or Family Admitting Clinic [...] Date Inactive Date Treating Clinician Comments Source Penicill ins DA Active MO HIVES 2023-11 00:00: 00 [facility] PENICILL INS Drug Class Active High Rash 07-04 00:00: 00 [facility] Penicill ins Propensi ty to adverse reaction s to drug Active Rash 07-04 00:00: 00 [facility] PENICILL IN DA Active U 03-16 00:00: 00 [facility] Penicill ins drug allergy Active [facility] Social History Social Habit Start Date Stop Date Quantity Comments Source Sex Assigned At 1990 00:00:00 1990 00:00:00 [facility] Smoking Status Start Date Stop Date Source Tobacco smoking consumption unknown [facility] Medications Ordered Medication Name Filled Medication Name [...] 11:02: 41 No No known medication s [facility] Procedures Procedure Date / Time Performed Performing Clinicia n Source MR Forearm wo contrast [id number] 2018-06-08 00:00:00 [facility] [U] XRAY WRIST MIN 3 VWS RIGHT [id number] 2018-05-11 00:00:00 [facility] History of Hand surgery [facility] of Tonsillectomy [facility] Encounters Start Date/Time End Date/Time Encounter Type Admission Type Attending Clinicians Care Facility Care Department Encounter ID Source 2024-11-18 08:18:00 2024-11-18 10:14:00 Emergency EM Hiro Velazquez [facility] TOMMY [id number] 89 [facility] 2024-11-02 20:31:00 2024-11-02 23:00:00 Emergency EM Deonna Cee [facility] [id number] 03 [facility] 2023-11-09 14:50:51 2023-11-09 14:50:51 Outpatient [facility] [id number] Anatoliy Sutherland 2023-11-02 09:43:27 2023-11-02 09:43:27 Outpatient [facility] [id number] Anatoliy Sutherland 2022-08-25 22:14:00 2022-08-25 22:24:00 Emergency X TRACERENETTAJOSE GARZAMERCEDES [facility] ERT [id number] [facility] 2022-08-25 22:14:00 2022-08-25 22:24:00 Emergency Dean Ontiveros [facility] [id number] [facility] 2022-05-24 14:26:00 2022-05-24 16:04:00 Emergency EM Dark, Tori [facility] [id number] [facility] 2022-05-24 14:26:00 2022-05-24 16:04:00 Emergency EM Dark, Tori [facility] [id number] [facility] 2018-06-08 08:45:00 2018-06-08 08:45:00 Appointmen t; CHARITO BYRD M.D. CHARITO BYRD M.D. [facility] [place] [id number] [place] [facility] 2018-05-11 08:45:00 2018-05-11 08:45:00 Appointmen t; CHARITO BYRD M.D. LI-YUNG HING, ANDREW, M.D. [facility] [place] [id number] [place] [facility] Results Test Description Test Time Test Comments Results Result Co mments Source AG STREP GROUP A (THROAT)2024-11-18 09:21:00* Test Item Value Reference Range Interpretation Comme nts AG STREP GROUP A (THROAT) (t est code = STREPA) NEGATIVE NEGATIVE INFLUENZA A B [id number] 09:20:00* Test Item Value Reference Range Interpretation Comme nts INFLUENZA A POC (test code = INFLAAG) Negative Negative INFLUENZA B POC (test code = INFLBAG) Negative Negative SOURCE: [facility]ALS[facility] DESCRIPTION: PCOVID 19 INHOUSE [id number] 22:36:00* Test Item Value Reference Range Interpretation Comme nts COVID 19 INHOUSE AG (test co de = [id number]) NEGATIVE NEGATIVE INFLUENZA A B [id number] 22:36:00* Test Item Value Reference Range Interpretation Comme nts INFLUENZA A POC (test code = INFLAAG) Negative Negative INFLUENZA B POC (test code = INFLBAG) Negative Negative SOURCE: NASALSPEC DESCRIPTION: PAG STREP GROUP A (THROAT)2024-11-02 22:11:00* Test Item Value Reference Range Interpretation Comme nts AG STREP GROUP A (THROAT) (t est code = STREPA) NEGATIVE NEGATIVE - XR FOOT 3 + V [id number] 00:00:00 [facility] RAFAEL [facility]YNCH : 1990 Sex: MFAX: Bryan Alarcon NP [phone] [place]: [address]: REG Name: RAFAEL LYNCH [facility] Tong Beal : 1990 Age/S: 31/M500 [facility] Unit #: [id number] Loc: [place] [address] Phys: Bryan Bejarano NP Acct:[id number] Dis Date: Status: REG ER PHONE #: [phone] Exam Date: 05/24/2022 1459 FAX #: [phone] Reason: LEFT FOOT PAIN EXAMS: CPT CODE: [id number] XR FOOT 3 + V LT [id number] PROCEDURE INFORMATION: Exam: XR Left Foot Exam date and time: 05/24/2022 2:51 PM Age: 31 years old Clinical indication: Pain; Foot; Left; Additional info: Left foot pain TECHNIQUE: Imaging protocol: Radiologic exam of the Left foot. Views: 3 or more views. AP Oblique Lateral COMPARISON: No relevant prior studies available. FINDINGS: Bones/joints: There is normal alignment without fractures or dislocations. The jointsappear unremarkable. Soft tissues: There are no radiopaque foreign bodies. There is no soft tissue gas or osseous erosive changes noted. Notes: If there is further concern, recommend follow-up radiogr aphs or MRI for complete assessment. IMPRESSION: No fractures or dislocation at 1524 Reported and signed by: Kody Mohr M.D. CC: Bryan Bejarano NP Technologist: RT Iris(Rudi) Trnscrd Date/Time/By: 05/24/2022 (1524) : By: [email or web address] Orig Print D/T: S: 05/24/2022 (1194) PAGE 1 Signed Report Notes Date/Time Note Provider Source 2024-11-18 08:20:00 [facility] EMERGENCY PROVIDER REPORT REPORT#:[id number] REPORT STATUS: Signed DATE:11/18/24 TIME: 0820 PATIENT: RAFAEL LYNCH UNIT #: [id number] ROOM/BED: : 92 AGE: 34 SEX: M PCP PHYS: Ariel Ford III, MD SERVICE AUTHOR: Eb Gan BUSINESS CONSULT REP SRV REP SRV TM: 0820 * ALL edits or amendments must be made on the electronic/computer document * ElviaEb Yana 11/18/24 0820: QBV-Eht-Aeuq Illness General Initial Greet Date/Time 11/18/24 0820 Presentation Chief Complaint FLU-LIKE SYMPTOMS Hx Obtained From Patient Free Text HPI Notes Free Text HPI Notes 34-year-old male presents to the ED with a complaint of flulike symptoms for the past 3 days. Patient states he was around his sick cousin who is ill with the same symptoms. Denies fever, chest pain, shortness of breath, dizziness, abdominal pain, nausea/vomiting/diarrhea, urinary, or any other symptoms. Review of Systems ROS Statements All systems rev neg except as marked. Free Text ROS Notes Free Text ROS Notes Flulike symptoms Past Medical History - Adult Stated Complaint FEVER Allergies Coded Allergies: Penicillins (Intermediate, HIVES 11/18/24) Home Medications Active Scripts IBUPROFEN (MOTRIN) 800 MG PO TID PRN PRN PAIN IBUPROFEN (MOTRIN) 800 MG PO TID PRN PRN PAIN #30 TABS Prov: 05/24/22 IBUPROFEN (MOTRIN) 800 MG PO TID PRN PRN PAIN IBUPROFEN (MOTRIN) 800 MG PO TID PRN PRN PAIN #30 TABS Prov: 11/02/24 methylPREDNISolone (MEDROL 4 MG DOSEPAK) 4 MG PO ASDIR methylPREDNISolone (MEDROL 4 MG DOSEPAK) 4 MG PO ASDIR #1 PACKET Prov: 11/02/24 Pt reports no significant: Past medical history, Past surgical history Smoking status for patients 13 years old or older: Current every day smoker Physical Exam Vital Signs Vital Signs First Documented: Result Date Time Pulse Ox 97 11/18 818 B/P 134/87 11/18 0818 B/P Mean 102 11/18 818 O2 Delivery Room air 11/18 818 Temp 37.3 11/18 818 Pulse 100 11/18 0818 Resp 16 11/18 818 Last Documented: Result Date Time B/P 124/82 11/18 1006 B/P Mean 96 11/18 1006 Temp 36.8 11/18 1006 Pulse 94 11/18 1006 Resp 18 11/18 1006 Pulse Ox 97 11/18 0818 O2 Delivery Room air 11/18 0818 Review of Vital Signs Reviewed Free Text PE Notes Free Text PE Notes Focused PE General/Const General/Const Awake, Alert, Well appearing, Not toxic appearing Eyes Eyes PERRL, No photophobia, Conjunctiva NL Ears/Nose/Throat Ears/Nose/Throat Airway patent, Mucous membranes moist, Tympanic membs NL, Ext aud canal NL, No sinus tenderness Pharynx/Tonsils/Uvula Pharyngeal erythema. Nose Discharge nasal clear. MS Neck Neck Supple, No meningismus, Full range of motion, No adenopathy, No swelling , Non-tender, No masses Resp/Chest Respiratory/Chest Breath sounds NL, Breath sounds = bilat, No respiratory distress, No rales, No rhonchi, No wheezing, No retractions Cardiovascular Cardiovascular Heart rate NL, Regular rhythm, Heart sounds NL, No murmurs, Peripheral circulation NL Abdomen/GI Abdomen/GI Soft, Non-tender, No guarding, No rebound Lymphatic Lymphatic No gross adenopathy Skin Skin Color NL, No rash, Warm, Dry, Turgor NL Neurologic Neurologic Oriented X3, Speech NL, No motor deficits, No sensory deficits Interpretation Diagnostics Lab Results Interpretation Results Laboratory Tests: 11/18 11/18 0825 0825 Other Body Source POC Nasal Influenza A (Negative) Negative POC Nasal Influenza B (Negative) Negative Throat Grp A Strep Scn (NEGATIVE) NEGATIVE Serology SARS-CoV-2 Ag (Rapid) (NEGATIVE) NEGATIVE Lab Statement Laboratory studies reviewed and considered in the medical decision-making. Point of Care Testing Pulse Oximetry Pulse Ox % 97 On: Room air Interpretation Interpreted by me Re-Evaluation MDM Free Text MDM Notes Free Text MDM Notes After the physical exam and H P, I ordered the appropriate tests ( lab(s) and/or imaging) for this patient based on stated complaints and physical exam findings to rule out an emergent medical condition that requires ED intervention. I personally reviewed the lab tests for this patient which show the patient is negative for influenza, COVID, and strep. I discussed these results with the patient who verbalized understanding. I will prescribe appropriate medication(s) for this patient's home use. Patient encouraged to follow-up with the provider(s) on the discharge paperwork. The patient is discharged home with supportive care, a plan for symptom management/medication(s), and follow-up instructions that detail what to expect over the next 48 hours and what symptoms should prompt immediate return to the ED. Follow-up instructions have been explained in detail [...] emergency department or a call to 911. Free Text MDM Notes Free Text MDM Notes Differential Diagnosis: Allergic rhinitis, Influenza, Viral syndrome, COVID Findings/Social Determinants: Presentation Acute Severity Evaluation Non life-threatening Diagnosis Appears Non-critical Patient Discharge Departure Vital Signs/Condition Vital Signs First Documented: Result Date Time Pulse Ox 97 11/18 0818 B/P 134/87 11/18 0818 B/P Mean 102 11/18 0818 O2 Delivery Room air 11/18 818 Temp 37.3 11/18 818 Pulse 100 11/18 0818 Resp 16 11/18 818 Last Documented: Result Date Time B/P 124/82 11/18 1006 B/P Mean 96 11/18 1006 Temp 36.8 11/18 1006 Pulse 94 11/18 1006 Resp 18 11/18 1006 Pulse Ox 97 11/18 0818 O2 Delivery Room air 11/18 0818 All vital signs available at the time of this entry have been reviewed. Condition Stable Clinical Impression Clinical Impression Primary Impression: URI with cough and congestion Disposition Decision Discharge )( Discharged to Home Yes )( Time 09 )( Date 11/18/24 Discharge/Care Plan Counseled Regarding Diagnosis, Lab results, Prescriptions, Need for follow-up, When to return to ED (Auto) Prescriptions Current Visit Scripts BROMPHENIRAMINE/PSEUDOEPHED/DM ([id number] SYR) 10 ML PO Q4H PRN PRN COUGH/CONGESTION BROMPHENIRAMINE/PSEUDOEPHED/DM ([id number] SYR) 10 ML PO Q4H PRN PRN COUGH/CONGESTION #200 ML IBUPROFEN (MOTRIN) 800 MG PO TID PRN PRN PAIN IBUPROFEN (MOTRIN) 800 MG PO TID PRN PRN PAIN #15 TABS ALBUTEROL (ALBUTEROL HFA 90 MCG/ACT) 2 PUFF INH RTQ4H PRN PRN DYSPNEA/WHEEZING ALBUTEROL (ALBUTEROL HFA 90 MCG/ACT) 2 PUFF INH RTQ4H PRN PRN DYSPNEA/ WHEEZING #8.5 GM Prescriptions Reviewed Risks, Benefits, Alternative treatment Patient Instructions ED URI, Viral, No Abx (Adult) Additional Instructions You tested negative for influenza, COVID, and strep. Please take the medications as prescribed, stay well-hydrated, and get plenty of rest. Please pay attention to your discharge instructions on when you should return to your nearest emergency room. Thank you. Departure Forms WORK/SCHOOL EXCUSE VARIABLE Discharge Note I have spoken with the [...] emergency department or a call to 911. Quality Measures BP F/U for HTN Referred for BP f/u < 4wk, F/u with PCP/other doc Approp Tx for URI 3 months or older, Dx upper resp infection, Abx not given Tobacco Screening/Cessation 18 years or older, Tobacco user, Counseled 3-10 minutes Hiro Velazquez 11/18/24 5424: Patient Discharge Departure Discharge/Care Plan Referrals Provider Referral: Remington Lu DO Follow-Up: 1 Week Notes: FOLLOW UP Address: [address] [place] [address] [address] [place] [address] Supervising Physician Note MidLv Saw Pt Alone This patient was seen by an BUSINESS CONSULT or a PA. I did not personally evaluate this patient. I was available for consultation as needed at all times during the patient's visit in the emergency department. at 1103 at 1654 RPT #:[id number] END OF REPORT [facility] 2024-11-02 21:25:00 [facility] ([facility]) EMERGENCY PROVIDER REPORT REPORT#:[id number] REPORT STATUS: Signed DATE:11/02/24 TIME: 2124 PATIENT: RAFAEL LYNCH UNIT #: [id number] ROOM/BED: : 92 AGE: 34 SEX: M PCP PHYS: Ariel Ford III, MD SERVICE AUTHOR: Erika Becker BUSINESS CONSULT REP SRV REP SRV TM: 2124 * ALL edits or amendments must be made on the electronic/computer document * Erika Becker 11/02/242124: HPI-URI/Cough/Cold Free Text HPI Notes Free Text HPI Notes 34-year-old male with no past medical history presents with complaints of cough, runny nose, sore throat for the past 1 week. Patient states that most of his symptoms have improved but patient then noticed bilateral facial/sinus swelling 2 days ago. Patient states that he has taken mxzj-lbk-wlhguib medications without improvement. Patient states that he has not had this issue in the past. Patient denies any tongue swelling, lip swelling, tightness to his throat, difficulty breathing, wheezing, shortness of breath. Patient is alert, oriented , ambulatory and nontoxic-appearing. General Confirmed Patient Yes Initial Greet Date/Time 11/02/242034 Presentation Chief Complaint Cough, non-productive, Facial pain, Runny nose, Sore throat Hx Obtained From Patient Onset Occurred Days ago (2 - facial pain/swelling), One week ago (cough, runny nose, sore throat) Review of Systems ROS Statements All systems rev neg except as marked. Focused Review of Systems Constitutional Denies: Chills, Fever, Weakness - generalized. Eyes Denies: Swelling bilat. Ears/Nose/Throat Reports: Sinus problem (swelling, pain), Sore throat, Throat pain. Denies: Earache bilat, Throat swelling, Tongue swelling, Voice change. Respiratory Reports: Cough, non-productive. Denies: Cough, productive, Dyspnea on exertion, Pleuritic pain, Shortness of breath, Wheezing. Allergy/Immun Denies: Allergic reaction, Anaphylaxis, Hives, Itching, Rhinorrhea, Sneezing. Neurologic Denies: Change LOC, Confusion, Dizziness, Generalized weakness, Headache. Additional Review of Systems Cardiovascular Denies: Chest pain, Syncope. Past Medical History - Adult Stated Complaint COUGH, RUNNY NOSE, SLIGHTFACIAL SWELLING X 2 DAYS Allergies Uncoded Allergies: PENICILLIN (05/16/09) Home Medications Active Scripts IBUPROFEN (MOTRIN) 800 MG PO TID PRN PRN PAIN IBUPROFEN (MOTRIN) 800 MG PO TID PRN PRN PAIN #30 TABS Prov: 05/24/22 Review of Nursing Notes Triage notes reviewed Pt reports no significant: Past medical history Smoking status for patients 13 years old or older: Current every day smoker Ambulatory Status Independent Physical Exam Vital Signs Vital Signs First Documented: Result Date Time Pulse Ox 98 11/02 2048 B/P 134/85 11/02 2048 B/P Mean 101 11/02 2048 O2 Delivery Room air 11/02 2048 Temp 99.5 11/02 2048 Pulse 96 11/02 2048 Resp 17 11/02 2048 Last Documented: Result Date Time Pulse Ox 98 11/02 2048 B/P 134/85 11/02 2048 B/P Mean 101 11/02 2048 O2 Delivery Room air 11/02 2048 Temp 99.5 11/02 2048 Pulse 96 11/02 2048 Resp 17 11/02 2048 Review of Vital Signs Reviewed Focused PE General/Const General/Const Awake, Alert, No acute distress, Well appearing, Well developed , Well hydrated, Well nourished, Cooperative, Not toxic appearing Ears/Nose/Throat Ears/Nose/Throat Airway patent, Mucous membranes moist, Pharynx NL, Tympanic membs NL, Ext aud canal NL, Mastoid area NL Sinus Tender maxillary R, Tender maxillary L, Tender mild. Negative: Tender frontal R, Tender frontal L, Erythema present, Swelling present. MS Neck Neck Supple, Full range of motion, No adenopathy Resp/Chest Respiratory/Chest Breath sounds NL, Breath sounds = bilat, No respiratory distress, No stridor Cardiovascular Cardiovascular Heart rate NL, Regular rhythm, Heart sounds NL, Cap refill not delayed, Peripheral circulation NL Skin Skin Warm, Dry Neurologic Neurologic Oriented X3, Speech NL, No motor deficits, No sensory deficits Interpretation Diagnostics Lab Results Interpretation Results Laboratory Tests: 11/02 Other Body Source POC Nasal Influenza A (Negative) Negative POC Nasal Influenza B (Negative) Negative Throat Grp A Strep Scn (NEGATIVE) NEGATIVE Serology SARS-CoV-2 Ag (Rapid) (NEGATIVE) NEGATIVE Lab Statement Laboratory studies reviewed and considered in the medical decision-making. Point of Care Testing Pulse Oximetry Pulse Ox % 98 On: Room air Interpretation Interpreted by me, Pulse oximetry normal Re-Evaluation MDM Re-Evaluation/Progress Re-Evaluation/Progress Time of Re-Eval 2240 Re-Eval Status Improved Eval Following Treatment Condition resolved Pain Re-Evaluation Pain improved Exam Post Tx - General Active, Alert, Appears non-toxic, Appears well Plan Post Re-Eval Plan discharge URI/Flu Adult MDM Note The patient is now resting comfortably, is alert and in no distress. The patient has a normal mental status and is neurologically intact. The patient appears well and is able to tolerate food or fluid by mouth, and there is no significant dehydration. There is no respiratory distress and no signs of systemic toxicity. The history, exam, diagnostic testing (if any) and current condition do not demonstrate an infectious process such as meningitis, severe pneumonia, retropharyngeal abscess, epiglottitis, sepsis or other serious bacterial infection requiring further testing, treatment, consultation, or admission at this time. The vital signs have been stable. The patient's condition is stable and appropriate for discharge. The patient will pursue further outpatient evaluation with the primary care physician or other designated or consulting physician as indicated in the discharge instructions. Tissue Perfusion Reassessment Patient tissue perfusion reassessment completed. ED Course Medication(s) Ordered Medication(s) Ordered: Central Nervous System Agents Sig/Jessenia Start time Last Medication Dose Route Stop Time Status Admin Ketorolac 30 MG X1ED STA 11/02 2045 DC 11/02 Tromethamine IM 11/02 Hormones And Synthetic Substit Sig/Jessenia Start time Last Medication Dose Route Stop Time Status Admin Dexamethasone 10 MG X1ED STA 11/02 2045 DC 11/02 PO 11/02 2046 2100 Differential Diagnosis Differential Diagnosis Allergic rhinitis, Influenza, Otitis media R, Otitis media L, Pharyngitis, streptococca, Pharyngitis, viral, Rhinitis, allergic, Rhinitis, nonallergic, Sinusitis, Viral syndrome Ruled Out Sepsis This is not sepsis. Free Text MDM Notes Free Text MDM Notes Patient with cold-like symptoms. Screened for COVID, strep, and influenza which were all negative. Patient was given ketorolac and dexamethasone which at that point, patient's symptoms significantly improved. Patient's presentation consistent with acute viral syndrome/viral illness/sinusitis. No evidence of bacterial infections including pneumonia, meningitis, pharyngitis. Vital signs are stable at this time. Advised to continue ibuprofen and acetaminophen at home. Patient given appropriate prescriptions for home use. Patient is to followup with primary physician/ENT if having continued symptoms. Advised to return to the ER if concern for alteration in mental status, uncontrolled fever, dehydration, or other concerns. Patient Discharge Departure Vital Signs/Condition Vital Signs First Documented: Result Date Time Pulse Ox 98 11/02 2048 B/P 134/85 11/02 2048 B/P Mean 101 11/02 2048 O2 Delivery Room air 11/02 2048 Temp 99.5 11/02 2048 Pulse 96 11/02 2048 Resp 17 11/02 2048 Last Documented: Result Date Time Pulse Ox 98 11/02 2048 B/P 134/85 11/02 2048 B/P Mean 101 11/02 2048 O2 Delivery Room air 11/02 2048 Temp 99.5 11/02 2048 Pulse 96 11/02 2048 Resp 17 11/02 2048 All vital signs available at the time of this entry have been reviewed. Condition Stable Clinical Impression Clinical Impression Primary Impression: Viral illness Secondary Impressions: Acute viral sinusitis Time of Impression 2239 Disposition Decision Discharge )( Discharged to Home Yes )( Time 2240 )( Date 11/02/24 Discharge/Care Plan Counseled Regarding Diagnosis, Lab results, Prescriptions, Need for follow-up, When to return to ED (Auto) Prescriptions Current Visit Scripts IBUPROFEN (MOTRIN) 800 MG PO TID PRN PRN PAIN IBUPROFEN (MOTRIN) 800 MG PO TID PRN PRN PAIN #30 TABS methylPREDNISolone (MEDROL 4 MG DOSEPAK) 4 MG PO ASDIR methylPREDNISolone (MEDROL 4 MG DOSEPAK) 4 MG PO ASDIR #1 PACKET Start on Prescriptions Reviewed Risks, Benefits, Alternative treatment Patient Instructions ED Viral Syndrome (Adult) Additional Instructions Read over education provided. Start taking the steroid pack tomorrow. Use the ibuprofen as prescribed to help with the swelling. If symptoms persist, schedule an appointment with an ENT for continuation of care and further evaluation. Discharge Note I have spoken with the [...] emergency department or a call to 911. Quality Measures BP F/U for HTN BP in normal range Acute Sinusitis Ab Age 18 or over, Abx not given Smoking Cessation Screened, tobacco user Tobacco Screening/Cessation 18 years or older, Tobacco user, Counseled 3-10 minutes Smoking Cessation Counseling The patient was questioned regarding their smoking habits, and I have determined , as the patient's treating physician, that there is a medical necessity in regards to the patient's medical condition to provide smoking cessation program education. The patient was advised to stop smoking and counseled for a period of greater than 3 minutes. The patient was instructed to follow up with a primary care physician for smoking cessation and given information regarding local smoking cessation programs in the area. The patient received detailed discharge instructions as to how to stop smoking. The patient expressed an understanding of the need to follow up and the plan for smoking cessation. Deonna Cee 11/04/24 0300: Patient Discharge Departure Discharge/Care Plan Referrals Provider Referral: Thierry Terrazas MD Address: [address] [place] [address] Provider Referral: Yahir Arauz MD Address: [address] [place] [address] Supervising Physician Note MidLv Saw Pt Alone I have reviewed the PA/BUSINESS CONSULT's note and plan of care. I was available for consultation as needed at all times during the patient's visit in the emergency department. I agree with the clinical impression, plan and disposition. at 0527 at 0300 RPT #:[id number] END OF REPORT [facility] 2022-05-24 14:38:00 [facility] ([facility]) EMERGENCY PROVIDER REPORT REPORT#:[id number] REPORT STATUS: Signed DATE:05/24/22 TIME: 143 PATIENT: RAFAEL LYNCH UNIT #: [id number] ROOM/BED: AGE: 31 SEX: M PCP PHYS: No Primary or Family Physician SERVICE AUTHOR: Bryan Bejarano BUSINESS CONSULT * ALL edits or amendments must be [...] under body while entering water slide at [facility]. Allergic to penicillin, no home meds, PSH [...] Pulse Ox 99 07/ 1430 B/P 155/97 07/ 1430 B/P Mean 116 07/02 1430 O2 Delivery Room air 07/ 1430 Temp 36.2 07/ 1430 Pulse 90 07/ 1430 Resp 16 07/ 1430 Last Documented: [...] No fractures or dislocation Impression By: Judi - Kody Mohr M.D. Point of Care Testing Pulse [...] Provider Referral: Anson Smalls Jr, MD Address: [address] [place] [address]. [id number] [id number] Supervising Physician Note MidLv Saw Pt Alone I have reviewed the PA/BUSINESS CONSULT's note and plan of care. I was available for consultation as needed at all times during the patient's visit in the emergency department. I agree with the clinical impression, plan and disposition. at [id number] at 0047 RPT #:[id number] END OF REPORT [facility]
--- NOTE | 2025-03-30 14:59 | EDPHYS ---
Physician Documentation [facility] Name: Tawnya Lynch Age: 34 yrs Sex: Male : 1990 Arrival Date: 03/30/2025 Time: 13:22 Bed Treatment Private MD: ED Physician Yaa Gonzales HPI: 03/30 13:59 This 34 yrs old Male presents to ER via Ambulatory with complaints of Hand Injury. sb4 13:59 Patient states that he hit his hand on a chair about 2 hours ago. States that it sb4 swelled immediately. He states the pain has not by however he is concerned because he had surgery on it 10+ years ago and wants to make sure the screws and plates are still intact. Denies any numbness, tingling, or decreased ROM. Historical: - Allergies: 13:51 PENICILLINS; iw - Home Meds: 13:51 None [Active]; iw - PMHx: 13:51 None; iw - PSHx: 13:51 Jaw Sx; right hand; iw - Immunization history:: Adult Immunizations not up to date. - Infectious Disease History:: Denies. - Social history:: Smoking status: Patient reports the use of cigarette tobacco products, smokes one-half pack cigarettes per day. ROS: 13:59 Constitutional: Negative for fever, chills, and weight loss, sb4 13:59 MS/extremity: Positive for injury or acute deformity, pain, swelling, of the dorsal aspect of proximal phalanx of right little finger and dorsum of right hand, 13:59 All other systems are negative, Exam: 14:00 Constitutional: This is a well developed, well nourished patient who is awake, alert, sb4 and in no acute distress. Head/Face: Normocephalic, atraumatic. Eyes: Extra-ocular motions intact. Periorbital areas with no swelling, redness, or edema. ENT: Mucous membranes moist. Respiratory: No increased work of breathing, no retractions or nasal flaring. 14:00 Musculoskeletal/extremity: Joints: the MCP of right little finger displays painful range of motion, swelling, tenderness, Vital Signs: 13:50 BP 132 / 85; Pulse 62; Resp 16; Pulse Ox 98% on R/A; Weight 90.72 kg; Height 6 ft. 1 iw in. ; Pain 3/10; 13:50 Body Mass Index 26.39 (90.72 kg, 185.42 cm) iw 13:50 Pain Scale: Adult MDM: 13:35 Medical Screening Exam initiated sb4 14:00 Differential diagnosis: dislocation, closed fracture, contusion. sb4 14:07 Independent interpretation of the following test(s) in the Emergency Department X-Ray: sb4 My interpretation is My interpretation of the right hand x-ray images is acute nondisplaced oblique fracture of the base of the 5th proximal phalanx. surgical hardware intact. 14:58 Data reviewed: vital signs, nurses notes, radiologic studies, I have discussed the sb4 patient's presentation/case with the attending Emergency Department Physician; and as a result, I will discharge patient. Counseling: I had a detailed discussion with the patient and/or guardian regarding the historical points, exam findings, and any diagnostic results supporting the discharge/admit diagnosis, radiology results, the need for outpatient follow up, a hand specialist, to return to the emergency department if symptoms worsen or persist or if there are any questions or concerns that arise at home. 03/30 13:55 Order name: Hand Right 3 View XRAY; Complete Time: 15:01 sb4 03/30 15:01 Order name: Ulnar Gutter splint sb4 Administered Medications: No medications were administered Disposition Summary: 03/30/25 14:58 Discharge Ordered Notes: Location: Home sb4 Problem: new sb4 Symptoms: are unchanged sb4 Condition: Stable sb4 Diagnosis - Nondisplaced fracture of proximal phalanx of right little finger, initial encounter sb4 for closed fracture Followup: sb4 - With: Private Physician - When: 1 week - Reason: Recheck today's complaints, Re-evaluation by your physician Discharge Instructions: - Discharge Summary Sheet sb4 - Finger Fracture, Adult, [id number] sb4 Forms: - Patient Portal Instructions sb4 - Leadership Thank You Letter sb4 Signatures: Dispatcher [employer] Afshan Schulte RN RN iw Brown, Sophia, ERROL PAAbdullahi sb4 Corrections: (The following items were deleted from the chart) 13:55 13:55 Hand Right 3 View+RAD.RAD.BRZ ordered. EDFL EDFL 14:36 14:07 Independent interpretation of the following test(s) in the Emergency Department sb4 X-Ray: My interpretation is My interpretation of the right hand x-ray images is acute nondisplaced oblique fracture of the base of the 5th proximal phalanx. sb4
--- NOTE | 2025-03-30 14:59 | ER ---
Nurse's Notes [facility] Name: Tawnya Lynch Age: 34 yrs Sex: Male : 1990 Arrival Date: 03/30/2025 Time: 13:22 Bed Treatment Private MD: Diagnosis: Nondisplaced fracture of proximal phalanx of right little finger, initial encounter for closed fracture Presentation: 03/30 13:50 Chief complaint: Patient states: came off a top bunk, my right hand hit top of chair iw when i came down, happened today at 1130. Coronavirus screen: At this time, the client does not indicate any symptoms associated with coronavirus-19. Ebola Screen: No symptoms or risks identified at this time. Initial Sepsis Screen: Does the patient meet any 2 criteria? No. Patient's initial sepsis screen is negative. Does the patient have a suspected source of infection? No. Patient's initial sepsis screen is negative. Risk Assessment: Do you want to hurt yourself or someone else? Patient reports no desire to harm self or others. Onset of symptoms was March 30, 2025. 13:50 Method Of Arrival: Ambulatory iw 13:50 Acuity: BRIA 4 iw Historical: - Allergies: 13:51 PENICILLINS; iw - Home Meds: 13:51 None [Active]; iw - PMHx: 13:51 None; iw - PSHx: 13:51 Jaw Sx; right hand; iw - Immunization history:: Adult Immunizations not up to date. - Infectious Disease History:: Denies. - Social history:: Smoking status: Patient reports the use of cigarette tobacco products, smokes one-half pack cigarettes per day. Vital Signs: 13:50 BP 132 / 85; Pulse 62; Resp 16; Pulse Ox 98% on R/A; Weight 90.72 kg; Height 6 ft. 1 iw in. ; Pain 3/10; 13:50 Body Mass Index 26.39 (90.72 kg, 185.42 cm) iw 13:50 Pain Scale: Adult iw ED Course: 13:25 Patient arrived in ED. al6 13:27 Latosha Han PA-C is PHCP. sb4 13:27 Yaa Gonzales MD is Attending Physician. sb4 13:51 Triage completed. iw 14:12 Hand Right 3 View XRAY In Process Unspecified. EDMS 15:13 Afshan Rosen, RN is Primary Nurse. iw Administered Medications: No medications were administered Outcome: 14:58 Discharge ordered by MD. still 15:13 Discharged to home ambulatory, iw 15:13 Condition: good 15:13 Discharge instructions given to patient, Instructed on discharge instructions, follow up and referral plans. Demonstrated understanding of instructions, follow-up care, 15:13 Patient left the ED. iw Signatures: Dispatcher [employer] EDMS Afshan Rosen RN RN iw Latosha Han, PA-C PA-C sb4 Hailey Jones Corrections: (The following items were deleted from the chart) 13:51 13:50 BP 132 / 85; Pulse 62bpm; Resp 16bpm; Pulse Ox 98% RA; Pain 01/30, Adult; iw iw
--- NOTE | 2025-03-30 15:00 | RAD REPORT ---
EXAM: XR Hand Right 3 View HISTORY: [facility] MAIN PAIN Bed Name: IW2 COMPARISON: None TECHNIQUE: 3 radiographic views of the RIGHT hand submitted. FINDINGS: Mildly displaced oblique fracture along the lateral base of the fifth digit proximal phalan x with intra-articular extension. Fixation plate along the fifth metacarpal in satisfactory alignment. Deformity along the shaft of the fourth metacarpal suggesting healed fracture. Joint align ment is maintained. Hyperthenar soft tissue swelling. No significant degenerative changes are present. IMPRESSION: Mildly displaced oblique fracture at the base of the fifth digit proximal phalanx with intra-articula r extension.
[2025-03-30 15:25] VITALS: BP 132/85; O2SAT 98
== END 2025-03-30 15:13 | disposition home or self-care (01) ==
LOC: ER 13:22
DX: S62.646A Nondisplaced fracture of proximal phalanx of right little finger, initial encounter for closed fracture (principal); F17.210 Nicotine dependence, cigarettes, uncomplicated
CPT/HCPCS: 99282